=== PATIENT | female | born 1945 | race Caucasian/White ===

== ENCOUNTER 2019-03-28 10:30 | Outpatient (CLI) | payer OTHER, SELFPAY ==
[2019-03-28 11:14] LABS: ALT 23 U/L (12-78); AST 11 U/L (15-37); Albumin 4.1 g/dL (3.4-5.0); Alkaline Phosphatase 58 U/L (46-116); BUN 22 mg/dL (7-18); Bilirubin, Total 1.1 mg/dL (0.2-1.0); CREATININE 0.84 mg/dL (0.55-1.02); Calcium 9.4 mg/dL (8.5-10.1); Chloride 106 mmol/L (98-107); Glucose 91 mg/dL (70-100); Potassium 4.5 mmol/L (3.5-5.1); Sodium 140 mmol/L (136-145); Total Protein 7.2 g/dL (6.4-8.2)
[2019-03-28 11:36] LABS: Abs Immature Grans 0.01 k/cumm (0.0-0.09); Absolute Basophil Count 0.02 k/cumm (0.0-0.2); Absolute Eosinophil Count 0.44 k/cumm (0.0-0.7); Absolute Lymphocyte Count 1.64 k/cumm (1.2-3.4); Absolute Monocyte Count 0.56 k/cumm (0.11-0.7); Absolute Neutrophil Count 2.64 k/cumm (1.2-6.7); Basophils % 0.4; Eosinophils % 8.3; HCT 43.7 % (36.0-46.0); HGB 14.5 g/dL (12.0-15.5); Immature Grans % 0.2; Lymphocytes % 30.9; Mean Corp. HGB Concentration 33.2 g/dL (32.0-36.0); Mean Corpuscular Hemoglobin 31.7 pg (27.0-33.0); Mean Corpuscular Volume 95.6 fL (80-95); Mean Platelet Volume 10.3 fL (8.0-11.0); Monocytes % 10.5; Neutrophils % 49.7; Platelet Count 253 x1000/uL (130-400); RBC 4.57 m/cumm (4.00-5.20); RBC Distribution Width 13.8 % (11.7-14.6); White Blood Cell Count 5.31 k/cumm (4.4-10.8)
== END 2019-03-28 10:50 ==
PROVIDERS: PCP Internal Medicine; Visit Provider Internal Medicine
DX: Z85.3 Personal history of malignant neoplasm of breast (principal)
CPT/HCPCS: 36415; 80053; 85025

== ENCOUNTER 2020-04-24 09:00 | Outpatient (REF) | payer OTHER, SELFPAY ==
[2020-04-24 19:33] LABS: Calculated LDL 142 mg/dL (<100); Cholesterol 216 mg/dL (<200); Glucose 102 mg/dL (74-106); HDL Cholesterol 59 mg/dL (40-60); Triglyceride 79 mg/dL (<150)
== END 2020-04-24 09:20 ==
LOC: NCHCN 09:00
PROVIDERS: PCP Internal Medicine; Visit Provider Nurse Practitioner Family
DX: Z00.00 Encounter for general adult medical examination without abnormal findings (principal)
CPT/HCPCS: 80061; 82947

== ENCOUNTER 2020-06-27 09:31 | Outpatient (REF) | payer OTHER, SELFPAY ==
[2020-06-27 20:59] LABS: ALT 35 U/L (14-59); AST 21 U/L (15-37); Calculated LDL 156 mg/dL (<100); Cholesterol 232 mg/dL (<200); HDL Cholesterol 64 mg/dL (40-60); Triglyceride 61 mg/dL (<150)
[2020-06-27 21:14] LABS: Creatine Kinase 65 U/L (26-192)
== END 2020-06-27 09:51 ==
LOC: NCHCN 09:31
PROVIDERS: PCP Internal Medicine; Visit Provider Nurse Practitioner Family
DX: E78.5 Hyperlipidemia, unspecified (principal)
CPT/HCPCS: 80061; 82550; 84450; 84460

== ENCOUNTER 2021-01-28 19:23 | Outpatient (REF) | payer OTHER, SELFPAY ==
[2021-01-28 16:06] LABS: Anion Gap 8.7 mmol/L (3-11); BUN 29 mg/dL (7-18); CO2 26.3 mmol/L (21.0-32.0); CREATININE 0.9 mg/dL (0.55-1.02); Calcium 9.3 mg/dL (8.5-10.1); Calculated LDL 61 mg/dL (<100); Chloride 106 mmol/L (98-107); Cholesterol 135 mg/dL (<200); Glucose 98 mg/dL (74-106); HDL Cholesterol 61 mg/dL (40-60); Potassium 4.5 mmol/L (3.5-5.1); Sodium 141 mmol/L (136-145); Triglyceride 67 mg/dL (<150)
== END 2021-01-28 19:24 | disposition home or self-care (01) ==
LOC: NCHCN 19:23
PROVIDERS: PCP Internal Medicine; Visit Provider Nurse Practitioner Family
DX: E78.5 Hyperlipidemia, unspecified (principal)
CPT/HCPCS: 80048; 80061

== ENCOUNTER 2022-01-16 18:55 | Outpatient (REF) | payer MEDICARE, SELFPAY ==
[2022-01-16 19:34] LABS: Anion Gap 7.4 mmol/L (3-11); BUN 29 mg/dL (7-18); CO2 27.6 mmol/L (21.0-32.0); CREATININE 1.1 mg/dL (0.55-1.02); Calcium 9.5 mg/dL (8.5-10.1); Chloride 105 mmol/L (98-107); Estimated GFR 48.04 (mL/min/1.73m2); Glucose 91 mg/dL (74-106); Potassium 4.7 mmol/L (3.5-5.1); Sodium 140 mmol/L (136-145)
== END 2022-01-16 18:56 | disposition home or self-care (01) ==
LOC: NCHCN 18:55
PROVIDERS: PCP Internal Medicine; Visit Provider Nurse Practitioner Family
DX: G47.00 Insomnia, unspecified (principal); Z79.899 Other long term (current) drug therapy
CPT/HCPCS: 80048

== ENCOUNTER 2023-01-19 19:32 | Outpatient (REF) | payer MEDICARE, SELFPAY ==
--- OUTSIDE RECORDS SUMMARY | 2023-01-19 19:38 | XMS_ITS | Continuity of Care Document ---
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 Name Role Phone [place] HCJavier Primary Care Physician Encounter [facility] Date(s): 08/25/22 - 08/25/[address] [address] Discharge Disposition: Home or Self Care Attending Physician: Radha Mari APRN Admitting Physician: Radha Mari APRN Referring Physician: Radha Mari APRN Allergies, Adverse Reactions, Alerts No Known Medication Allergies Assessment and Plan Diagnostic Tests Pending * Immunoglobulin Free Light Chains, S [facility] 08/25/22 * Protein Electrophoresis, S (SPEP) [facility] 08/25/22 * Immunoglobulins UV 08/25/22 Immunizations Given and Recorded Vaccine Date Status Refusal Reason influenza virus vaccine, inactivated 06/24/10 Jermaine rded influenza virus vaccine, inactivated 08/08/09 Jermaine rded Medications Aleve 0 Refill(s) Start Date: 04/07/22 Status: Ordered Calcium Calcium Start Date: 04/07/22 Status: Ordered multivitamin adult, oral tablet 0 Refill(s) Start Date: 04/07/22 Status: Ordered Vitamin B12 0 Refill(s) Start Date: 04/07/22 Status: Ordered Problem List Condition Confirmation Course Effective Dates Status Health St atus Informant Bone density finding Confirmed Active Disorders of bilirubin excretion Confirmed Active Fracture of pubic ramus Confirmed Active Hypertensive disorder Confirmed 03/31/19 Active Insomnia Confirmed 02/22/18 Active Personal history of primary malignant neoplasm of breast Confirmed Active Primary malignant neoplasm of female breast Confirmed Active Procedures Procedure Date Related Diagnosis Body Site Status Colonoscopy 1 04/06/19 Completed Excision of bunion - Right 09/20/11 Completed Release of tendon - Right Foot 09/20/11 Completed Port vascular access removal 09/20/09 Completed Repair of meniscus - Right 09/20/09 Completed Flexible sigmoidoscopy 2 03/12/00 Completed Hysterectomy 09/20/90 Completed Left Breast biopsy Comple damian Ligation of fallopian tube Completed Port vascular access insertion Completed 1screening for cancer; 09/01/2006 normal exam 2normal exam Results Laboratory List Name Date CBC w/ Diff 08/25/22 Comprehensive Metabolic Panel 08/25/22 Automated Diff 08/25/22 Most recent to oldest [Reference Range]: 1 WBC [5.0-10.0 x10^3/mcL] 5.0 x10^3/mcL (08/25/22 8:29 AM) RBC [4.1-5.3 x10^6/mcL] 4.3 x10^6/mcL (08/25/22 8:29 AM) Neutro Auto [40.0-75.0 %] 56.0 % (08/25/22 8:29 AM) Lymph Auto [20.0-50.0 %] 21.4 % (08/25/22 8:29 AM) [place] Auto [2.0-15.0 %] 13.7 % (08/25/22 8:29 AM) Basophil Auto [0.0-1.0 %] 0.4 % (08/25/22 8:29 AM) BUN [7-18 mg/dL] 33 mg/dL *HI* (08/25/22 8:29 AM) Glucose Level [74-106 mg/dL] 84 mg/dL (08/25/22 8:29 AM) Potassium Level [3.5-5.1 mmol/L] 4.0 mmo l/L (08/25/22 8:29 AM) MCV [80.0-96.0] 98.4 *HI* (08/25/22 8:29 AM) AST [15-37 unit/L] 23 unit/L (08/25/22 8:29 AM) ALT [14-59 unit/L] 32 unit/L (08/25/22 8:29 AM) MCHC [31.0-35.0 g/dL] 32.5 g/dL (08/25/22 8:29 AM) Sodium Level [136-145 mmol/L] 141 mmol/L (08/25/22 8:29 AM) Hct [37.0-47.0 %] 42.2 % (08/25/22 8:29 AM) Calcium Level [8.5-10.1 mg/dL] 8.8 mg/dL (08/25/22 8:29 AM) Albumin Level [3.4-5.0 g/dL] 3.7 g/dL (08/25/22 8:29 AM) Protein Total [6.4-8.2 g/dL] 6.6 g/dL (08/25/22 8:29 AM) MCH [26.0-32.0 pg] 31.9 pg (08/25/22:29 AM) Neutro Absolute 2.8 x10^3/mcL *NA* (08/25/22 8:29 AM) Bilirubin Total [0.2-1.0 mg/dL] 0.9 mg/d L (08/25/22 8:29 AM) Hgb [12.0-16.0 g/dL] 13.7 g/dL (08/25/22 8:29 AM) Alk Phos [46-146 unit/L] 49 unit/L (08/25/22 8:29 AM) Platelets [130-450 x10^3/mcL] 214 x10^3/ mcL (08/25/22 8:29 AM) CO2 [21-32 mmol/L] 27 mmol/L (08/25/22 8:29 AM) eGFR Non-AA [>=60] 61 (08/25/22 8:29 AM) eGFR AA [>=60] 61 (08/25/22 8:29 AM) Chloride Level [98-107 mmol/L] 108 mmol/ L *HI* (08/25/22 8:29 AM) RDW-CV [11.7-17.0 %] 14.1 % (08/25/22 8:29 AM) Imm Gran Auto [0.0-0.9 %] 0.4 % (08/25/22 8:29 AM) Creatinine Level [0.55-1.02 mg/dL] 0.95 mg/dL (08/25/22 8:29 AM) Eos, Auto [1.0-6.0 %] 8.1 % *HI* (08/25/22 8:29 AM) Social History Social History Type Response Tobacco Never tobacco user T obacco Use:. Sex Female Patient Care team information Personnel Name: Lisa JEFF, Javier Cartwrigth MD Address: Address: [id number] [place] [address]
[2023-01-19 20:33] LABS: Anion Gap 9.5 mmol/L (3-11); BUN 32 mg/dL (7-18); CO2 25.5 mmol/L (21.0-32.0); CREATININE 1.1 mg/dL (0.55-1.02); Calcium 10.1 mg/dL (8.5-10.1); Chloride 108 mmol/L (98-107); Estimated GFR 51.11 (mL/min/1.73m2); Glucose 87 mg/dL (74-106); Potassium 4.7 mmol/L (3.5-5.1); Sodium 143 mmol/L (136-145)
== END 2023-01-19 19:33 | disposition home or self-care (01) ==
LOC: NCHCN 19:32
PROVIDERS: PCP Internal Medicine; Visit Provider Nurse Practitioner Family
DX: R94.4 Abnormal results of kidney function studies (principal)
CPT/HCPCS: 80048

== ENCOUNTER 2024-02-29 14:21 | Outpatient (REF) | payer MEDICARE, SELFPAY ==
[2024-02-29 19:14] LABS: HCT 40.3 % (36.0-46.0); MCH 30.7 pg (27.0-33.0); MCHC 32.3 % (32.0-36.0); MCV 95 fL (80-95); Platelet Count 267 10^3/uL (130-400); RBC 4.23 10^6/uL (3.93-5.22); RDW 14.7 % (11.7-14.6); RDW-SD 51.3 fL; WBC 7.26 10^3/uL (4.4-10.8)
[2024-02-29 19:26] LABS: ALT 29 U/L (14-59); AST 23 U/L (15-37); Albumin 3.6 g/dL (3.4-5.0); Alkaline Phosphatase 57 U/L (46-116); Anion Gap 8.4 mmol/L (3-11); BUN 18 mg/dL (7-18); Bilirubin, Total 0.9 mg/dL (0.2-1.0); CO2 26.6 mmol/L (21.0-32.0); Calcium 9.4 mg/dL (8.5-10.1); Chloride 108 mmol/L (98-107); Estimated GFR 56.95 (mL/min/1.73m2); Glucose 96 mg/dL (74-106); Magnesium 1.7 mg/dL (1.8-2.4); Sodium 143 mmol/L (136-145); Total Protein 6.5 g/dL (6.4-8.2)
== END 2024-02-29 14:22 | disposition home or self-care (01) ==
LOC: NCHCN 14:21
PROVIDERS: PCP Internal Medicine; Visit Provider Nurse Practitioner Family
DX: R19.7 Diarrhea, unspecified (principal)
CPT/HCPCS: 80053; 85027; 83735

== ENCOUNTER 2024-06-13 17:27 | Outpatient (REF) | payer MEDICARE, SELFPAY ==
[2024-06-13 21:03] LABS: Folate 8.9 ng/mL (8.6-20.0); Vitamin B12 1541 pg/mL (193-986)
[2024-06-15 13:17] LABS: Albumin 64.4 % (55.8-66.1); Albumin g/dL 4.6 g/dL (3.6-5.2); Comment (See Note); Monoclonal Spike 3.5 % (None Seen); Monoclonal Spike g/dL 0.2 g/dL (None Seen); Total Protein 7.1 g/dL (6.3-8.2)
== END 2024-06-13 17:28 | disposition home or self-care (01) ==
LOC: NCHCN 17:27
PROVIDERS: PCP Internal Medicine; Visit Provider Internal Medicine
DX: I48.0 Paroxysmal atrial fibrillation (principal)
CPT/HCPCS: 82607; 82746; 84165

== ENCOUNTER 2024-09-20 14:01 | Outpatient (CLI) | payer MEDICARE, SELFPAY ==
[2024-09-20 14:05] LABS: Abs Immature Grans 0.02 10^3/uL (0.0-0.06); Absolute Basophil Count 0.04 10^3/uL (0.0-0.2); Absolute Eosinophil Count 0.59 10^3/uL (0.0-0.7); Absolute Lymphocyte Count 1.89 10^3/uL (1.2-3.4); Absolute Monocyte Count 0.78 10^3/uL (0.1-0.8); Absolute Neutrophil Count 3.35 10^3/uL (1.2-6.7); Basophils % 0.6 %; Eosinophils % 8.8 %; HCT 40.4 % (36.0-46.0); HGB 13.2 g/dL (11.2-15.7); Immature Grans % 0.3 %; Lymphocytes % 28.3 %; MCH 30.1 pg (27.0-33.0); MCHC 32.7 % (32.0-36.0); MCV 92 fL (80-95); MPV 10.2 fL (8.0-11.0); Monocytes % 11.7 %; Neutrophils % 50.3 %; Platelet Count 231 10^3/uL (130-400); RBC 4.39 10^6/uL (3.93-5.22); RDW 14.6 % (11.7-14.6); RDW-SD 49.1 fL; WBC 6.67 10^3/uL (4.4-10.8)
[2024-09-20 14:25] LABS: ALT 24 U/L (14-59); AST 19 U/L (15-37); Alkaline Phosphatase 69 U/L (46-116); Anion Gap 9.7 mmol/L (3-11); BUN 28 mg/dL (7-18); Bilirubin, Total 0.93 mg/dL (0.2-1.0); CO2 25.3 mmol/L (21.0-32.0); CREATININE 1.2 mg/dL (0.55-1.02); Calcium 9.8 mg/dL (8.5-10.1); Chloride 106 mmol/L (98-107); Estimated GFR 45.48 (mL/min/1.73m2); Glucose 116 mg/dL (74-106); Sodium 141 mmol/L (136-145); Total Protein 7.2 g/dL (6.4-8.2)
[2024-09-21 09:41] LABS: IgA 121 mg/dL (85-499); IgG 563 mg/dL (610-1616); IgM 599 mg/dL (35-242); Lambda Free Light Chain 1.61 mg/dL (0.57-2.63)
[2024-09-22 13:26] LABS: Albumin g/dL 4.4 g/dL (3.6-5.2); Comment (See Note); Monoclonal Spike 3.3 % (None Seen); Monoclonal Spike g/dL 0.2 g/dL (None Seen); Total Protein 6.8 g/dL (6.3-8.2)
== END 2024-09-20 14:02 | disposition home or self-care (01) ==
LOC: LBO 14:01
PROVIDERS: PCP Internal Medicine; Visit Provider Nurse Practitioner
DX: C18.2 Malignant neoplasm of ascending colon (principal)
CPT/HCPCS: 36415; 80053; 82784; 83883; 84165; 85025